=== PATIENT | female | born 2000 | race Caucasian/White ===

== ENCOUNTER 2021-01-13 11:53 | Emergency (ER) | payer BC ==
[2021-01-13 11:58] VITALS: TEMP 97.9
[2021-01-13 11:59] VITALS: BP 122/85; PULSE 111; RESP 18
--- NOTE | 2021-01-13 12:07 | ED ---
Lower Extremity Injury HPI - General Chief Complaint: Extremity Injury, Lower Stated Complaint: fall/ankle injury Time Seen by Provider: 01/13/21 11:59 Source: patient, RN notes reviewed Mode of arrival: wheelchair Limitations: no limitations - History of Present Illness Initial Comments: Patient is a 20-year-old female presented to the ED for left ankle pain post fall this morning. Patient states that she tripped down one stair falling on left ankle hearing several pops and snaps. Patient states she did not hit her head, lose consciousness or injure any other extremity during the fall. Patient reports pain over medial aspect of the ankle as well as anterior lower leg tenderness. Patient reports pain 10/10 pain with any movement. Patient denies any numbness or tingling in the affected extremity. - Related Data Allergies Allergy/AdvReac Type Severity Reaction Status Date / Time egg Allergy Anaphylaxis Verified 01/13/21 11:58 Review of Systems ROS Statement: Those systems with pertinent positive or pertinent negative responses have been documented in the HPI. ROS Other: All systems not noted in ROS Statement are negative. Past Medical History Past Medical History: No Reported History History of Any Multi-Drug Resistant Organisms: None Reported Past Surgical History: No Surgical Hx Reported Past Psychological History: ADD/ADHD Smoking Status: Never smoker Past Alcohol Use History: Occasional Past Drug Use History: None Reported General Exam Limitations: no limitations General appearance: alert, in no apparent distress Respiratory exam: Present: normal lung sounds bilaterally. Absent: respiratory distress, wheezes, rales, rhonchi, stridor Cardiovascular Exam: Present: normal rhythm, tachycardia, normal heart sounds. Absent: systolic murmur, diastolic murmur, rubs, gallop, clicks Left Hip exam: Present: normal inspection Upper Leg exam: Present: normal inspection Knee exam: Present: normal inspection Lower Leg exam: Present: tenderness (Anterior distal lower leg), swelling Ankle exam: Present: tenderness, swelling Foot/Toe exam: Present: normal inspection Neurovascular tendon exam: Present: no vascular compromise Neurological exam: Present: alert, oriented X3 Skin exam: Present: warm, dry, intact, normal color. Absent: rash Course Vital Signs 01/13/21 11:55 Temperature 97.9 F Pulse Rate 111 H Respiratory 18 Rate Blood Pressure 122/85 O2 Sat by Pulse 100 Oximetry Procedures - Orthopedic Splinting/Casting Injury #1 Side: left Lower Extremity Injury Location: short leg, ankle Lower Extremity Immobilizer: posterior splint, synthetic pre-padded splint Other Orthopedic Equipment: crutches Medical Decision Making - Medical Decision Making Patient presents with fall and pain in left ankle, x-ray scan showed spiral fracture of distal fibula with possible fracture of posterior margin of tibia. Patient will be splinted and short leg splint, will be given or follow-up referral for follow-up. Patient was counseled on pain management with ibuprofen. Return parameters were discussed. Disposition Clinical Impression: Fracture of distal end of fibula, Fracture of distal end of left tibia Disposition: HOME SELF-CARE Condition: Stable Instructions (If sedation given, give patient instructions): Ankle Fracture (DC) Additional Instructions: Please return to the Emergency Department if symptoms worsen or any other concerns. Is patient prescribed a controlled substance at d/c from ED?: No Referrals: Yokasta Whaley MD [Primary Care Provider] - 1-2 days Jhonny Reich MD [STAFF PHYSICIAN] - 1-2 days Time of Disposition: 13:00
[2021-01-13] MEDS ORDERED: IBUPROFEN 600 MG TAB PO STA (12:08)
--- NOTE | 2021-01-13 12:25 | XR ---
EXAMINATION TYPE: XR ankle complete LT DATE OF EXAM: 01/13/2021 CLINICAL HISTORY: Pain TECHNIQUE: Frontal, lateral and oblique images of the left ankle are obtained. COMPARISON: None. FINDINGS: There is oblique nondisplaced fracture of the distal fibula. There is a slight irregularit y along the posterior margin of the tibia. Fracture not excluded. IMPRESSION: 1. Spiral placed fracture distal fibula. Cannot exclude a fracture of the posterior margin of the tib ia. Consider CT scan follow-up
[2021-01-13] MEDS ORDERED: ACET/COD 300 MG/30 MG STARTER PACK 6 TAB BTL PO STA (12:49)
== END 2021-01-13 13:04 | disposition home or self-care (01) ==
LOC: EC 11:53
DX: S82.832A Other fracture of upper and lower end of left fibula, initial encounter for closed fracture (principal); S82.392A Other fracture of lower end of left tibia, initial encounter for closed fracture; F90.9 Attention-deficit hyperactivity disorder, unspecified type; W01.0XXA Fall on same level from slipping, tripping and stumbling without subsequent striking against object, initial encounter
CPT/HCPCS: 29515; 99283

== ENCOUNTER 2021-01-21 11:53 | Day surgery (SDC) | payer BC ==
--- NOTE | 2021-01-19 09:39 | HP ---
HISTORY AND PHYSICAL CHIEF COMPLAINT: Left ankle pain. HISTORY OF PRESENT ILLNESS: The patient is a 20-year-old female who presents with left ankle pain after an injury on 01/13/2021, falling down some stairs at home. Initially she was seen in the emergency room and was placed in a splint. She has been nonweightbearing since. She denies previous injury. PAST MEDICAL HISTORY: Negative. PAST SURGICAL HISTORY: Negative. CURRENT MEDICATIONS: None. ALLERGIES: She has NO KNOWN DRUG ALLERGIES; however, she has SENSITIVITY TO EGGS. FAMILY HISTORY: Significant for hypertension. SOCIAL HISTORY: Negative for current tobacco or alcohol use. REVIEW OF SYSTEMS: Sixteen-point review of systems otherwise reviewed and is noncontributory. PHYSICAL EXAMINATION: The patient is approximately 5 feet 8 inches, 200 pounds of endomorphic habitus. HEENT exam is nonfocal. Neck is supple. She has painless passive motion of her left hip. She is nontender about the left knee and proximal fibula. On examination of her left ankle, she has moderate lateral swelling and ecchymosis. She is tender over the distal fibula and over the distal syndesmosis. She has mild tenderness over the medial deltoid. No mid or forefoot tenderness is noted. Her distal neurovascular exam appears intact in the left lower extremity. X-rays of the left ankle obtained in the office show a spiral distal fibular fracture with displacement. There is an associated posterior malleolar fracture involving approximately 15% of the articular surface. There is mild syndesmotic widening. IMPRESSION: 1. Left spiral distal fibular fracture with displacement and possible syndesmotic injury. 2. Left posterior malleolar fracture. RECOMMENDATIONS: I talked to the patient at length regarding her condition and treatment options. At this point she opts to proceed with surgery. We will plan to proceed with open reduction and internal fixation of her left lateral malleolar fracture and possible syndesmotic fixation. Potentially we will keep the patient for a 23-hour hold postoperatively. Risks and benefits were discussed at length in layman's terms. YOJANAL / QAMARN: [id number] /
[2021-01-20 11:09] VITALS: BMI 30.4
[~2021-01-21 11:53] MED LIST: DEXAMETHASONE SOD PHOSPHATE 4 MG/ML 1 ML VIAL IV ONE; HYDROmorphone 0.5 MG/0.5 ML SYRINGE IVP PRN; LACTATED RINGERS 1,000 ML IV SCH; LIDOCAINE 1% (10MG/ML) FOR IV START INTRADERMA PRN; ONDANSETRON 4 MG/2 ML VIAL IVP ONE; SCOPOLAMINE 1.5MG/72HR PATCH TRANSDERM ONE
[2021-01-21] MEDS ORDERED: LACTATED RINGERS 1,000 ML IV ONE ×2 (12:14→16:12)
[2021-01-21] MEDS ORDERED: MIDAZOLAM 2 MG/2 ML VIAL IVP ONE (13:53)
[2021-01-21] MEDS ORDERED: DEXAMETHASONE SOD PHOSPHATE 4 MG/ML 1 ML VIAL ONE (14:13)
[2021-01-21] MEDS ORDERED: ROPIVACAINE 5 MG/ML 30 ML VIAL ONE (14:13)
[2021-01-21] MEDS ORDERED: MIDAZOLAM 2 MG/2 ML VIAL ONE (14:13)
[2021-01-21] MEDS ORDERED: fentaNYL (PF) 50 MCG/ML 2 ML AMP ONE (14:13)
[2021-01-21] MEDS ORDERED: KETOROLAC 15 MG/ML 1 ML VIAL ONE (14:13)
[2021-01-21] MEDS ORDERED: SUCCINYLCHOLINE CHLORIDE VIAL 200 MG/10 ML VIAL IV ONE (14:13)
[2021-01-21] MEDS ORDERED: PROPOFOL 10 MG/ML 20 ML VIAL IV ONE (14:13)
[2021-01-21] MEDS ORDERED: LIDOCAINE 1% INJ 10MG/ML (20 ML MDV) ONE (14:13)
[2021-01-21] MEDS ORDERED: ETOMIDATE 2 MG/ML 10 ML VIAL ONE (14:13)
--- NOTE | 2021-01-21 15:44 | P.OP ---
Date of Procedure: 01/21/21 Preoperative Diagnosis: Displaced left distal fibular fracture Postoperative Diagnosis: Same Procedure(s) Performed: Open reduction and internal fixation left distal fibula fracture Implants: Arthrex 7 hole one third tubular plate, 3.5 mm cortical screws the appropriate length Anesthesia: mary FERNANDO Surgeon: Jhonny Reich Webfocus Developer #1: Garo Bustamante Estimated Blood Loss (ml): 10 Pathology: none sent Condition: stable Disposition: PACU Indications for Procedure: The patient's a 20-year-old female who presents after injuring her left ankle with evidence of a displaced left distal fibular shaft fracture. In addition to displacement, there was comminution of the spiral distal shaft fracture. A discussion of the risks and benefits of operative intervention versus conservative measures was made with the patient. She opted to proceed with surgery. Operative risks to include infection, neurovascular injury, development of blood clots, possible development of nonunion/malunion and possible need for subsequent procedures was discussed. Informed consent was obtained. Operative Findings: As below Description of Procedure: The patient was brought to the operating, and after induction of general anesthesia the left lower extremity was prepped and draped in normal fashion. The tourniquet was inflated to 270 mmHg. An 8 cm incision was then made along the posterior lateral border of the left distal fibula. The skin was incised sharply. Subcutaneous tissues were divided bluntly. Electrocautery was used for hemostasis. Blunt dissection was then made down to level the fibula. A self-retaining retractor was placed. The fracture site was identified and cleaned of clot and debris. The main oblique fracture was reduced with a lobster claw. An anterior posterior lag screw was placed utilizing a 3.5 mm cortical screw the appropriate length. A 7-hole one third tubular plate was then used as a neutralization plate laterally. This was attached proximally and distally with 3.5 motor cortical screws the appropriate length. This was done with the aid of fluoroscopy. There was comminution of the posterior aspect of the fibula however that fragment was too small to capture with hardware. Final fluoroscopic views including AP, mortise, and lateral view showed adequate reduction of the fracture and uatsdin of fibular length. I did under direct fluoroscopy checked the syndesmosis with a Coton test and felt it was stable. The wound was irrigated with normal saline. The subcutaneous tissues reapproximated interrupted 2-0 Vicryl sutures. The skin was reprepped with 3-0 subcuticular Prolene suture. Steri-Strips were applied. A sterile dressing was applied in addition to a bulky splint. The tourniquet was deflated less than 50 minutes total tourniquet time. The patient was awoken from general anesthesia and transferred to recovery room in good condition. Blood loss was estimated at 10 mL. No complications were incurred. Sponge and needle counts were correct in the case. Garo ROSALES assisted and the major components of the case to include positioning, exposure, implantation, and closure.
[2021-01-21 15:49] VITALS: RESP 18; TEMP 97.7
--- NOTE | 2021-01-21 15:49 | XR ---
Fluoroscopy INDICATION: Pain FINDINGS: Fluoroscopy time: 22 seconds. Images obtained: 4. IMPRESSIONS: 1. Documentation of fluoroscopy.
--- NOTE | 2021-01-21 16:04 | FL ---
Fluoroscopy HISTORY: Pain 22 seconds fluoroscopy time supplied to the referring clinician. 4 intraoperative C-arm images docum ent the procedure. See dictated report from orthopedic surgery.
[2021-01-21 16:42] VITALS: BP 135/99; PULSE 115
--- NOTE | 2021-01-22 20:33 | P.ANPRN ---
Procedure Note - Anesthesia - Nerve Block Performed Left Popliteal Single Time Out Performed: Yes Date of Procedure: 01/22/21 Procedure Start Time: 13:51 Procedure Stop Time: 14:00 Location of Patient: PreOp Indication: Acute Post-Operative Pain, Requested by Surgeon Sedation Type: Sedate with meaningful contact maintained Preparation: Sterile Prep Position: Right Lateral Needle Types: Pajunk Needle Gauge: 21 Ultrasound used to visualize needle placement: Yes Ultrasound used to observe medication spread: Yes Blood Aspirated: No Pain Paresthesia on Injection Noted: No Resistance on Injection: Normal Image Stored and Saved: Yes Events: Uneventful and Well Tolerated (ropi .5% 20cc plus dexamethasone 4mg)
== END 2021-01-21 17:06 | disposition home or self-care (01) ==
LOC: OR 11:53
PROVIDERS: ATTEND Orthopaedic Surgery
DX: S82.832A Other fracture of upper and lower end of left fibula, initial encounter for closed fracture (principal); W10.9XXA Fall (on) (from) unspecified stairs and steps, initial encounter; Y93.9 Activity, unspecified; Y92.009 Unspecified place in unspecified non-institutional (private) residence as the place of occurrence of the external cause; Z91.012 Allergy to eggs; Z82.49 Family history of ischemic heart disease and other diseases of the circulatory system; Z79.3 Long term (current) use of hormonal contraceptives; Z79.891 Long term (current) use of opiate analgesic
CPT/HCPCS: 64445; 76942; 87635; 73600; 27792; C1713; J2250; J0330; J1100; J0690; J2405; J2001; J3010; J2795; J1885; J2704

== ENCOUNTER → 2021-10-30 | Outpatient (CLI) | payer BC ==
--- NOTE | 2021-11-06 03:28 | MR ---
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 Ventricles and sulci appear normal. There is no mass effect or midline shift. No sign of intracranial hemorrhage. Diffusion images show no evidence of an acute infarct. No evidence of cerebral edema. Th e matthew and white matter structures have fairly normal signal pattern. There is 7 mm rounded area of l ow signal on the T1 images that could be a pineal cyst. There is no pathologic enhancement. No evidence of posterior fossa mass. The brainstem appears intact. There is normal enhancement of the venous sinuses. No evidence of orbital mass. Sella turcica appears normal. Optic chiasm appears norm al. 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 Otherwise negative exam. No change compared to old exam
== END | disposition home or self-care (01) ==
LOC: RADMRIMAIN 10:23
PROVIDERS: ATTEND Neurological Surgery
DX: D35.4 Benign neoplasm of pineal gland (principal)
CPT/HCPCS: 70553; A9585